=== PATIENT | male | born 1960 | race Caucasian/White ===

== ENCOUNTER 2017-12-20 15:03 | Emergency (ER) | payer OTHER ==
[2017-12-20 15:22] VITALS: TEMP 98.2
--- NOTE | 2017-12-20 15:34 | ED ---
Lower Extremity Injury HPI - General Chief Complaint: Extremity Injury, Lower Stated Complaint: RT ANKLE INJURY Time Seen by Provider: 12/20/17 15:11 Source: patient, EMS Mode of arrival: EMS Limitations: no limitations - History of Present Illness Initial Comments: 57 years old male transferred to [facility] from [facility] he rolled his ankle 2 days ago while ambulating inside the house and he thought he just sprained it today he went to [facility] that the radiographic noticed that he has unstable bimalleolar fracture of the distal fibula and a suspected deltoid ligament disruption. At rest of the hospital for further evaluation and management. He denies any headaches no neck stiffness no chest pain does have a mild or numbness of breath which is his baseline, and abdominal pain no frequency urgency dysuria he is able to move his toes and there is no discoloration of his toes or the distal right foot - Related Data Home Medications Medication Instructions Recorded Confirmed Naproxen Sodium [Aleve] 220 mg PO BID PRN 12/20/17 12/20/17 Previous Rx's Medication Instructions Recorded oxyCODONE HCL/ACETAMINOPHEN 1 tab PO Q6HR PRN #12 tab 12/20/17 [Percocet 5-325 mg] Allergies Allergy/AdvReac Type Severity Reaction Status Date / Time No Known Allergies Allergy Verified 12/20/17 15:22 Review of Systems ROS Statement: Those systems with pertinent positive or pertinent negative responses have been documented in the HPI. ROS Other: All systems not noted in ROS Statement are negative. Past Medical History Past Medical History: No Reported History History of Any Multi-Drug Resistant Organisms: None Reported Past Surgical History: No Surgical Hx Reported Past Psychological History: No Psychological Hx Reported Smoking Status: Current every day smoker Past Alcohol Use History: None Reported Past Drug Use History: None Reported General Exam - General Exam Comments Initial Comments: General: The patient is awake and alert, in no distress, and does not appear acutely ill. Skin: Skin is warm and dry and no rashes or lesions are noted. Eye: Pupils are equal, round and reactive to light, extra-ocular movements are intact; there is normal conjunctiva bilaterally. Ears, nose, mouth and throat: There are moist mucous membranes and no oral lesions. Neck: The neck is supple, there is no tenderness or JVD. Cardiovascular: There is a regular rate and rhythm. No murmur, rub or gallop is appreciated. Respiratory: To auscultation bilateral, no wheezing no rhonchi no distress respiratory pierre noticed Gastrointestinal: Soft, non-distended, non-tender abdomen without masses or organomegaly noted. There is no rebound or guarding present. Bowel sounds are unremarkable. Back: There is no tenderness to palpation in the midline. There is no obvious deformity. Musculoskeletal: Normal ROM at the metatarsal phalangeal joint, capillary refill is within normal range no neurovascular compromise noticed distal to the right ankle Neurological: CN II-XII intact, Cranial nerves III through XII are intact. There are no obvious motor or sensory deficits. Coordination appears grossly intact. Speech is normal. Psychiatric: Cooperative, appropriate mood & affect, normal judgment. Limitations: no limitations Course Vital Signs 12/20/17 15:08 Temperature 98.2 F Pulse Rate 90 Respiratory 18 Rate Blood Pressure 180/110 O2 Sat by Pulse 98 Oximetry Allegra Benoit The PA working with Dr. Steven Tineo called and they feel that patient do not need any intervention today they wait few days down the don't want swelling is down and then they will reevaluate him. They recommended that the patient keeps the splint on no weight bearing the recommended crutches and pain meds, this was discussed with the patient in detail patient understands with it and agrees with that he'll call Dr. Tineo's office Saturday. Patient be prescribed couple days worth Percocets and recommended that they'll use Motrin along with - Reevaluation(s) Reevaluation #1: I reviewed the paperwork sent along from [facility], reviewed the radiology report dictated by radiologist about the right ankle and states unstable bimalleolar of N with the distal fibula fracture and the deltoid ligament disruption, but discussed with the Dr. teague for the further management 12/20/17 15:33 Disposition Clinical Impression: Bimalleolar fracture Disposition: HOME SELF-CARE Condition: Good Instructions: Ankle Fracture (ED) Prescriptions: oxyCODONE HCL/ACETAMINOPHEN [Percocet 5-325 mg] 1 tab PO Q6HR PRN #12 tab PRN Reason: Pain Referrals: None,Stated [Primary Care Provider] - 1-2 days
[2017-12-20] MEDS ORDERED: ONDANSETRON 4 MG/2 ML VIAL IVP STA (15:39)
[2017-12-20] MEDS ORDERED: MORPHINE SULFATE 4 MG/ML SYRINGE IVP STA (15:39)
[2017-12-20 17:02] VITALS: BP 157/90; PULSE 80; RESP 20
== END 2017-12-20 17:01 | disposition home or self-care (01) ==
LOC: EC 15:03
DX: S82.841A Displaced bimalleolar fracture of right lower leg, initial encounter for closed fracture (principal); F17.200 Nicotine dependence, unspecified, uncomplicated; X50.9XXA Other and unspecified overexertion or strenuous movements or postures, initial encounter; Y92.009 Unspecified place in unspecified non-institutional (private) residence as the place of occurrence of the external cause
CPT/HCPCS: 99284; 96374; 96375; J2270; J2405